=== PATIENT | female | born 1980 | race Caucasian/White ===

== ENCOUNTER 2022-03-18 23:05 | Emergency (ER) | payer OTHER, SELFPAY ==
--- NOTE | ~2022-03-18 | CT_ITS ---
EXAMINATION: CT abdomen pelvis wo con DATE: 03/19/2022 00:59 INDICATION: Right sided flank pain radiating to groin. History kidney stones. Nausea. TECHNIQUE: Computed tomography (CT) of the abdomen and pelvis was performed without intravenous contr ast. Automated exposure control and iterative reconstruction technique were employed. Exam dose: 163 .90 mGy-cm total exam DLP. COMPARISON: None. FINDINGS: There is mild discoid atelectasis or scarring at the lung bases. No basilar pulmonary conso lidation. Normal heart size. No pericardial or pleural effusion. The liver, gallbladder, bile ducts, spleen, pancreas and pancreatic duct as well as well as adrenal g lands are unremarkable. A couple of small nonobstructing right renal calculi measuring up to 2.5 mm and several left nonobstr ucting renal calculi measuring up to 3 x 5 mm approximately are noted. No ureteral calculus or hydrou reteronephrosis is evident. The urinary bladder is unremarkable. There is an IUD in expected position within the uterus. Normal caliber of the abdominal aorta. No intraperitoneal or retroperitoneal or pelvic mass lesion or adenopathy or ascites. Normal appendix. No bowel obstruction or intraperitoneal free air. Included skeletal structures are unremarkable. IMPRESSION: Mild bilateral nonobstructive nephrolithiasis Reviewed, dictated and finalized at [facility]. Reviewed, dictated and finalized at [facility]. 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
[2022-03-18 23:09] VITALS: BP 145/83; PULSE 73; RESP 16; TEMP 36.9; O2SAT 100
[2022-03-19] VITALS (13 sets, daily range): BP systolic 137; BP diastolic 83; PULSE 59–72; RESP 17–43; O2SAT 95–100
--- NOTE | 2022-03-19 00:31 | ED.GENADULT ---
HPI - General Adult General Chief complaint: Urogenital-Female Stated complaint: flank pain Time Seen by Provider: 03/19/22 00:17 History of Present Illness HPI narrative: Is a 41-year-old female presenting ED with a chief complaint of flank pain. The pain is on the right side started 8:00 p.m. today. Is a sharp pain that radiates down into her groin. This was 10 out 10 in intensity but is improved. Patient says it felt like this when she had a kidney stone long time ago. There are no exacerbating relieving symptoms. Patient does have some nausea but no vomiting. She denies hematuria, dysuria urgency or frequency. Patient has fever chills. Related Data Allergies Allergy/AdvReac Type Severity Reaction Status Date / Time codeine Allergy Mild HALLUCINATI Verified 03/19/22 00:29 ON hydrocodone AdvReac Vomiting Verified 03/19/22 00:29 Review of Systems Review of Systems: CONSTITUTIONAL: Denies night sweats. EYES: No eye pain ENT: Denies rhinorrhea CARDIOVASCULAR: Denies palpitations RESPIRATORY: Denies hemoptysis GASTROINTESTINAL: Denies hematemesis GENITOURINARY: Denies hematuria. SKIN: Denies rash MUSCULOSKELETAL: Denies myalgia. NEUROLOGIC: Denies weakness. PSYCHIATRIC: Denies delusions [facility] Social History Social History (Updated 03/19/22 @ 00:33 by Garry Myrick MD) Social History: Patient drinks alcohol occasionally, smokes pack cigarettes over today, denies illicit drug Exam Narrative: APPEARANCE: No apparent distress. Head: atraumatic. EYES: EOMI, NOSE: Atraumatic NECK: Trachea midline RESPIRATORY: No increased rate of breathing CARDIOVASCULAR: RRR, ABDOMINAL: abdomen is soft, nontender no guarding , no CVA tenderness MUSCULOSKELETAl: No obvious deformities NEURO: Alert. Moving 4/4 extremities SKIN:: Warm, dry. Normal color PSYCHIATRIC: Normal affect Course Vital Signs Vital signs: Vital Signs Temperature 98.4 F 03/18/22 23:09 Pulse Rate 73 03/18/22 23:09 Respiratory Rate 16 03/18/22 23:09 Blood Pressure 145/83 H 03/18/22 23:09 Pulse Oximetry 100 03/18/22 23:09 Oxygen Delivery Room Air 03/18/22 23:09 Temperature 98.4 F 03/18/22 23:09 Pulse Rate 73 03/18/22 23:09 Respiratory Rate 16 03/18/22 23:09 Blood Pressure 145/83 H 03/18/22 23:09 Pulse Oximetry 100 03/18/22 23:09 Oxygen Delivery Room Air 03/18/22 23:09 Medical Decision Making MDM Narrative Medical decision making narrative: is a 41-year-old female presenting with right-sided flank pain. She has a history of kidney stones. CT and pelvis is ordered to evaluate. Lab work and urine also been obtained. Lab work was significant for mildly elevated white blood cell count of 11.5. Urine had some RBCs and some white blood cells but it was a dirty catch with many squamous cells. Patient does not have any urinary symptoms at this time. CT abdomen pelvis did not reveal any obstructing kidney stones. There were several nonobstructing renal nephrolithiasis. There is no hydroureter. At this time the patient's pain is well controlled. The patient has not had pain since she presented to the ED. It is likely that she had a stone and passed it. Patient will be discharged with instructions take Motrin Tylenol for pain control. She can return emergency department for condition is to worsen. Vital Signs Vital Signs: Vital Signs Temperature 98.4 F 03/18/22 23:09 Pulse Rate 73 03/18/22 23:09 Respiratory Rate 16 03/18/22 23:09 Blood Pressure 145/83 H 03/18/22 23:09 Pulse Oximetry 100 03/18/22 23:09 Oxygen Delivery Room Air 03/18/22 23:09 Temperature 98.4 F 03/18/22 23:09 Pulse Rate 73 03/18/22 23:09 Respiratory Rate 16 03/18/22 23:09 Blood Pressure 145/83 H 03/18/22 23:09 Pulse Oximetry 100 03/18/22 23:09 Oxygen Delivery Room Air 03/18/22 23:09 Lab Data Result diagrams: 03/19/22 00:27 03/19/22 00:27
[2022-03-19 00:33] LABS: Basophils Absolute Auto 0.1 K/mm3 (0.0-0.1); Eosinophils Absolute Auto 0.3 K/mm3 (0-0.3); Eosinophils Percent Auto 2.4 % (0-4.4); Hematocrit 42.5 % (37.0-47.0); Hemoglobin 14.6 g/dL (12.0-15.0); Immature Granulocyte Absolute 0.05 K/mm3 (0.00-0.031); Immature Granulocyte Percent A 0.4 % (0-0.5); Lymphocytes Absolute Auto 2.17 K/mm3 (0.9-3.2); Lymphocytes Percent Auto 18.9 % (18.3-44.2); Mean Corpuscular HGB Conc 34.4 g/dl (32-36); Mean Corpuscular Hemoglobin 31.6 pg (26-34); Mean Platelet Volume 9.9 fl (7.4-10.4); Monocytes Absolute Auto 0.7 K/mm3 (0.1-0.6); Monocytes Percent Auto 6.2 % (2.6-8.5); Neutrophils Absolute Auto 8.2 K/mm3 (1.3-6.7); Neutrophils Percent Auto 71.1 % (45.5-73.1); Platelet Count Result 224 k/mm3 (150-375); Red Blood Count 4.62 M/mm3 (4.2-5.4); Red Cell Distribution Width 12.1 % (11.5-14.5); White Blood Count 11.5 K/mm3 (4.5-10.0)
[2022-03-19 00:34] LABS: Appearance Urine Clear (Clear); Bilirubin Urine Negative (Negative); Blood Urine Negative (Negative); Color Urine Yellow (Yellow); Glucose Urine UA Negative (Negative); Ketones Urine Negative (Negative); Leukocyte Esterase Ur 1+ LEU/UL (Negative); Nitrate Urine Negative (Negative); Protein Urine Negative (Negative); Specific Grav Ur 1.015 (1.001-1.035); Urobilinogen Urine 0.2 mg/dL (<2.0)
[2022-03-19 00:44] LABS: Alanine Aminotransferase 22 U/L (6-35); Albumin Level 4.4 g/dL (3.5-5.1); Alkaline Phosphatase 72 U/L (38-126); Anion Gap 10 mmol/L (8-16); Aspartate Amino Transferase 23 U/L (14-36); Bilirubin,Total 0.6 mg/dL (0.2-1.3); Blood Urea Nitrogen 7 mg/dL (7-17); Calcium 9.5 mg/dL (8.4-10.2); Carbon Dioxide 22 mmol/L (22-30); Chloride 107 mmol/L (98-107); Estimated CRCL calculation 75 ml/min; Estimated Glomerular Filt Rate > 60; Glucose 89 mg/dL (65-110); Potassium 3.7 mmol/L (3.4-5.0); Sodium 139 mmol/L (137-145)
[2022-03-19 00:48] LABS: Bacteria Urine Trace /hpf; Mucus Urine Rare /lpf; Squamous Epithelial Cell Urine Many /hpf (Few)
[2022-03-19 00:49] LABS: Add Urine Microscopic? YES
[2022-03-19 00:53] LABS: Magnesium 2.1 mg/dL (1.6-2.3)
[2022-03-19] MEDS: ONDANSETRON INJ 4 MG/2 ML VIAL IV PUSH (00:59)
[2022-03-19] MEDS: IBUPROFEN 400 MG TABLET 800 MG PO (00:59)
[2022-03-19] MEDS: ACETAMINOPHEN 500 MG TABLET 1000 MG PO (01:00)
[2022-03-19] MEDS: SODIUM CHLORIDE 0.9% IV 1,000 ML 999 ML IV CONT (01:00)
--- NOTE | 2022-03-19 01:05 | PC.NURSE ---
Pt here during seasonal time change. Times may be repeated.
== END 2022-03-19 03:13 | disposition home or self-care (01) ==
PROVIDERS: Emergency Provider Emergency Medicine; PCP Nurse Practitioner Family
DX: R10.9 Unspecified abdominal pain (principal)
CPT/HCPCS: 36415; 74176; 80053; 81001; 81025; 83735; 85025; 96361; 96374; 99284; A9270; J2405; J7030

== ENCOUNTER 2024-06-02 11:02 | Outpatient (CLI) | payer OTHER, SELFPAY ==
--- NOTE | ~2024-06-02 | XR_ITS ---
EXAMINATION: XR chest 2V 06/02/2024 11:22 INDICATION: Nicotine dependence. PROCEDURE: 2 view chest COMPARISON: No prior studies for comparison. FINDINGS: The lungs are clear. The cardiomediastinal silhouette is within normal limits. There are no pleural effusions. There is no pneumothorax suspected. IMPRESSION: 1: NO ACUTE CARDIOPULMONARY DISEASE. Reviewed, dictated and finalized at location [facility]. 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
--- OUTSIDE RECORDS SUMMARY | 2024-06-05 12:59 | XMS_ITS | Data Portability ---
Author Organization [facility], Main Office Address [address] [place] [address] Care Team Providers Care Motel Keeper Name Role Phone BENNIE JANE Primary Care Provider Assessment Encounter Date Assessment Date Assessment LastModified by Organization Details LastModified Time 08/09/2022 08/09/2022 41 yo F with - WELL ADULT VISIT - ? IBS - VIT D DEFICIENCY - SMOKER - H/O ANXIETY D/w pt in detail about her findings and further plan of care. Will do routine labs, cxr. Pt declined HCG. Meds as directed. Diet and exercise explained in detail. Currently smoking about 0.5 ppd. Encouraged pt to cut down and quit it. HM: WWE - 10/02, normal as per pt. Cont f/u with Gyne at [facility] as per schedule. Mammo - Never. Ordered. Flu - Pt declined. Tdap - 08/31/16. F/u in 2 weeks. Annual labs in 08/04. [email or web address] Not available 08/09/2022 11:36:07 08/29/2022 08/29/2022 41 yo F with - HTG, mild - ? IBS - VIT D DEFICIENCY - SMOKER - H/O ANXIETY - FH OF COLON CANCER Annual labs: 08/16/22. D/w pt in detail about her findings, recent labs and further plan of care. Will refer pt to GI. Meds as directed. Diet and exercise explained in detail. Currently smoking about 0.5 ppd. Encouraged pt to cut down and quit it. HM: WWE - 10/02, normal as per pt. Cont f/u with Gyne at [facility] as per schedule. Mammo - Never. Ordered. Flu - Pt declined. Tdap - 08/31/16. F/u in 3 months. Lipids in 12/03. Annual labs in 08/04. [email or web address] Not available 08/29/2022 15:06:59 06/02/2024 06/02/2024 43 yo F with - WELL ADULT VISIT - HTG, mild - ? IBS - VIT D DEFICIENCY - B/L KIDNEY STONES - SMOKER - H/O ANXIETY - FH OF COLON CANCER Annual labs: 08/16/22. CT A&P wo: 03/19/22. D/w pt in detail about her findings, recent labs & imagines and further plan of care. Will do routine labs, cxr. Pt declined for HCG. Will refer pt to GI again. Meds as directed. Diet and exercise explained in detail. Currently smoking about 0.5 ppd. Encouraged pt to cut down and quit it. F/u with GI as per schedule. F/u with Ophtho as per schedule. Cont f/u with Gyne as per schedule. HM: WWE - 10/03, normal as per pt. Cont f/u with Gyne at [facility] as per schedule. Mammo - Never. Ordered again. Flu - Pt declined. Tdap - 08/31/16. F/u in 2-3 weeks. Annual labs in 06/08. [email or web address] Not available 06/02/2024 11:05:45 Plan of Treatment Reminders Order Date Submit Date Provider Last Modified By Organization Details Last Modified Time Details Appointments Follow Up 15 2024 10:45A Deena Jane MD Not available Not available Not available Lab vitamin D, 25-hydrox y, total, serum [email or web address] [place] [address] (Lab), [address] [place], [address], 09/06/2022 09:02:20 glycohemo globin, total, blood 2022 023 [facility] (Lab), [address] [place], [address], 08/16/2022 21:38:14 CBC w/ auto diff 2022 023 [facility] (Lab), [address] [place], [address], 08/16/2022 19:49:38 CMP, serum or plasma 2022 023 [facility] (Lab), [address] [place], [address], 08/16/2022 21:09:40 lipid panel, serum 2022 023 [facility] (Lab), [address] [place], [address], 08/16/2022 21:09:45 TSH, serum, reflex free T4 [address] (Lab), [address] [place], [address], 09/06/2022 09:01:56 urinalysi s complete, reflex culture [address] (Lab), [address] [place], [address], 09/06/2022 09:02:07 lipid panel, serum [email or web address] (Lab), [address] [place], [address], 11/29/2022 08:18:16 vitamin D, 25-hydrox y, total, serum 2024 025 [facility], [address], [place], [address], 06/03/2024 11:10:53 HbA1c (hemoglob in A1c), blood 2024 025 ROSALIA [facility], [address], [place], [address], 06/03/2024 11:10:54 CBC w/ auto diff 2024 025 [facility], [address], [place], [address], 06/03/2024 11:10:49 CMP, serum or plasma 2024 025 [facility], [address], [place], [address], 06/03/2024 11:10:48 lipid panel, serum 2024 025 [facility], [address], [place], [address], 06/03/2024 11:10:47 TSH, serum, reflex free T4 2024 025 [facility], [address], [place], [address], 06/02/2024 10:57:16 urinalysi s complete, reflex culture 2024 025 [facility], [address], [place], [address], 06/03/2024 11:10:50 Referral gastroent erologist referral - Please call the pt to make an appointme nt. 2022 023 [email or web address] Noble Ortiz MD, [address] [facility], [address], [place], [address], 09/28/2022 17:38:15 gastroent erologist referral - Please call patient to schedule an appointme nt. Thank you. 2024 025 KATELYN Dexter MD, [address] [facility], [address], [address], 06/02/2024 11:45:25 Procedures None recorded. Surgeries None recorded. Imaging MAMMO, screening , bilateral 2022 023 [email or web address] Not available 09/06/2022 12:40:45 XR, chest, 2 view 2022 023 [email or web address] Not available 09/06/2022 12:40:45 MAMMO, screening , bilateral - Please call pt to schedule 2024 025 ATHENAFAX [facility], [address], [place], [address], 06/02/2024 12:05:26 XR, chest, 2 view 2024 025 [email or web address] [facility], [address], [place], [address], 06/02/2024 14:44:20 Medication Orders nicotine 14 mg/24 hr daily transderm al patch 2022 023 [email or web address] [facility]/Pharmacy #[id number], [address] [place], [address], 06/02/2024 10:48:07 ergocalci ferol (vitamin D2) 1,250 mcg (50,000 unit) capsule 2022 023 [facility]/Pharmacy #[id number], [address] [place], [address], 08/29/2022 14:48:26 Patient TargetsNo targets recorded. Patient InstructionsNo instructions recorded. Reason for Referral Lens Coater Referral for Family history of cancer of colon Please call the pt to make an appointment. Referring Physician: [facility], Encounter Date: 08/29/2022 Lens Coater Referral for Family history of cancer of colon Please call patient to schedule an appointment. Thank you. Referring Physician: [facility], Encounter Date: 06/02/2024 Results Created Date Observation Date Name Description Value Unit Range Abnormal Flag Note LastModifiedBy Organization Detail LastModifiedTime 08/17/19 23 08/16/2022 CBC/C OMPLE TE BLD COUNT W/DIF F white blood cells 10.5 x10'3 /uL 4.2-10 .8 Not Available [facility] (Lab) [address] [place], [address], 08/16/2022 19:49:38 08/17/19 23 08/16/2022 CBC/C OMPLE TE BLD COUNT W/DIF F red blood cells 4.92 x10'6 /uL 3.80-5 .20 Not Available [facility] (Lab) [address] [place], [address], 08/16/2022 19:49:38 08/17/19 23 08/16/2022 CBC/C OMPLE TE BLD COUNT W/DIF F hemoglobin 15.1 g/dL 12.0-1 5.6 Not Available [facility] (Lab) [address] [place], [address], 08/16/2022 19:49:38 08/17/19 23 08/16/2022 CBC/C OMPLE TE BLD COUNT W/DIF F hematocrit 45.8 % 35.7-4 5.7 high Not Available [facility] (Lab) [address] [place], [address], 08/16/2022 19:49:38 08/17/19 23 08/16/2022 CBC/C OMPLE TE BLD COUNT W/DIF F mean red cell volume 93.1 fL 82.0-9 9.0 Not Available [facility] (Lab) [address] [place], [address], 08/16/2022 19:49:38 08/17/19 23 08/16/2022 CBC/C OMPLE TE BLD COUNT W/DIF F mean red cell hemoglobin 30.7 pg 27.0-3 3.0 Not Available [facility] (Lab) [address] [place], [address], 08/16/2022 19:49:38 04/05/08/16/2022 CBC/C OMPLE TE BLD COUNT W/DIF F mean RBC HGB concentratio n 33.0 g/dL 31.0-3 6.0 Not Available [facility] (Lab) [address] [place], [address], 08/16/2022 19:49:38 08/17/19 23 08/16/2022 CBC/C OMPLE TE BLD COUNT W/DIF F red cell distribution width 12.7 % 11.8-1 5.5 Not Available [facility] (Lab) [address] [place], [address], 08/16/2022 19:49:38 08/17/19 23 08/16/2022 CBC/C OMPLE TE BLD COUNT W/DIF F platelets 238 x10'3 /uL 150-40 0 Not Available [facility] (Lab) [address] [place], [address], 08/16/2022 19:49:38 08/17/19 23 08/16/2022 CBC/C OMPLE TE BLD COUNT W/DIF F mean platelet volume 10.8 fL 9.0-12 .4 Not Available [facility] (Lab) [address] [place], [address], 08/16/2022 19:49:38 08/17/19 23 08/16/2022 CBC/C OMPLE TE BLD COUNT W/DIF F neutrophils 74.7 % 39.0-7 2.0 high Not Available [facility] (Lab) [address] [place], [address], 08/16/2022 19:49:38 08/17/19 23 08/16/2022 CBC/C OMPLE TE BLD COUNT W/DIF F lymphocytes 15.4 % 16.0-4 7.0 low Not Available [facility] (Lab) [address] [place], [address], 08/16/2022 19:49:38 08/17/1908/16/2022 CBC/C OMPLE TE BLD COUNT W/DIF F monocytes 6.8 % 5.0-12 .0 Not Available [facility] (Lab) [address] [place], [address], 08/16/2022 19:49:38 08/17/19 23 08/16/2022 CBC/C OMPLE TE BLD COUNT W/DIF F eosinophils 1.8 % 1.0-7. 0 Not Available [facility] (Lab) [address] [place], [address], 08/16/2022 19:49:38 08/17/1908/16/2022 CBC/C OMPLE TE BLD COUNT W/DIF F basophils 1.0 % 0.0-2. 0 Not Available [facility] (Lab) [address] [place], [address], 08/16/2022 19:49:38 08/17/1908/16/2022 CBC/C OMPLE TE BLD COUNT W/DIF F immature granulocytes 0.3 % 0.00-0 .50 Not Available [facility] (Lab) [address] [place], [address], 08/16/2022 19:49:38 08/17/19 23 08/16/2022 CBC/C OMPLE TE BLD COUNT W/DIF F neutrophils, absolute count 7.87 x10'3 /uL 1.5-8. 0 Not Available [facility] (Lab) [address] [place], [address], 08/16/2022 19:49:38 08/17/1908/16/2022 CBC/C OMPLE TE BLD COUNT W/DIF F lymphocytes, absolute count 1.62 x10'3 /uL 1.07-3 .43 Not Available [facility] (Lab) [address] [place], [address], 08/16/2022 19:49:38 08/17/19 23 08/16/2022 CBC/C OMPLE TE BLD COUNT W/DIF F monocytes, absolute count 0.72 x10'3 /uL 0.29-0 .99 Not Available [facility] (Lab) [address] [place], [address], 08/16/2022 19:49:38 08/17/19 23 08/16/2022 CBC/C OMPLE TE BLD COUNT W/DIF F eosinophils, absolute count 0.19 x10'3 /uL 0.02-0 .53 Not Available [facility] (Lab) [address] [place], [address], 08/16/2022 19:49:38 08/17/19 23 08/16/2022 CBC/C OMPLE TE BLD COUNT W/DIF F basophils, absolute count 0.11 x10'3 /uL 0.01-0 .08 high Not Available [facility] (Lab) [address] [place], [address], 08/16/2022 19:49:38 08/17/19 23 08/16/2022 CBC/C OMPLE TE BLD COUNT W/DIF F immature granulocytes ,absolute 0.03 x10'3 /uL 0.00-0 .05 Not Available [facility] (Lab) [address] [place], [address], 08/16/2022 19:49:38 08/17/19 23 08/16/2022 CBC/C OMPLE TE BLD COUNT W/DIF F nucleated red blood cells 0.0 % -0 Not Available [facility] (Lab) [address] [place], [address], 08/16/2022 19:49:38 08/17/19 23 08/16/2022 CBC/C OMPLE TE BLD COUNT W/DIF F NRBC# 0.00 x10'3 /uL Not Available [facility] (Lab) [address] [facility] [place], [address], 08/16/2022 19:49:38 08/17/1908/16/2022 URINA LYSIS COMPL ETE/I RIS W/RFX color LIGHT- YELLOW Not Available [facility] (Lab) [address] [place], [address], 08/16/2022 21:03:46 08/17/19 23 08/16/2022 URINA LYSIS COMPL ETE/I RIS W/RFX appear EXTRA TURBID abnormal Not Available [facility] (Lab) [address] [facility] [place], [address], 08/16/2022 21:03:46 08/17/19 23 08/16/2022 URINA LYSIS COMPL ETE/I RIS W/RFX specific gravity 1.012 1.001- 1.030 Not Available [facility] (Lab) [address] [place], [address], 08/16/2022 21:03:46 08/17/19 23 08/16/2022 URINA LYSIS COMPL ETE/I RIS W/RFX pH 5.0 pH_un its 5.0-9. 0 Not Available [facility] (Lab) [address] [place], [address], 08/16/2022 21:03:46 08/17/19 23 08/16/2022 URINA LYSIS COMPL ETE/I RIS W/RFX leukocytes NEGATI VE gavin/u L negati ve- Not Available [facility] (Lab) [address] [place], [address], 08/16/2022 21:03:46 08/17/19 23 08/16/2022 URINA LYSIS COMPL ETE/I RIS W/RFX nitrite NEGATI VE negati ve- Not Available [facility] (Lab) [address] [place], [address], 08/16/2022 21:03:46 08/17/19 23 08/16/2022 URINA LYSIS COMPL ETE/I RIS W/RFX protein NEGATI VE mg/dL negati ve- Not Available [facility] (Lab) [address] [place], [address], 08/16/2022 21:03:46 08/17/19 23 08/16/2022 URINA LYSIS COMPL ETE/I RIS W/RFX glucose NORMAL mg/dL normal - Not Available [facility] (Lab) [address] [place], [address], 08/16/2022 21:03:46 08/17/19 23 08/16/2022 URINA LYSIS COMPL ETE/I RIS W/RFX ketones NEGATI VE mg/dL negati ve- Not Available [facility] (Lab) [address] [place], [address], 08/16/2022 21:03:46 08/17/19 23 08/16/2022 URINA LYSIS COMPL ETE/I RIS W/RFX urobilinogen NORMAL mg/dL normal - Not Available [facility] (Lab) [address] [place], [address], 08/16/2022 21:03:46 08/17/19 23 08/16/2022 URINA LYSIS COMPL ETE/I RIS W/RFX bilirubin NEGATI VE mg/dL negati ve- Not Available [facility] (Lab) [address] [place], [address], 08/16/2022 21:03:46 08/17/19 23 08/16/2022 URINA LYSIS COMPL ETE/I RIS W/RFX blood NEGATI VE mg/dL negati ve- Not Available [facility] (Lab) [address] [place], [address], 08/16/2022 21:03:46 08/17/19 23 08/16/2022 URINA LYSIS COMPL ETE/I RIS W/RFX white blood cells 0-8 /i??h pfi?? 0-8 Not Available [facility] (Lab) [address] [place], [address], 08/16/2022 21:03:46 08/17/19 23 08/16/2022 URINA LYSIS COMPL ETE/I RIS W/RFX red blood cells NONE /i??h pfi?? 0-4 Not Available [facility] (Lab) [address] [place], [address], 08/16/2022 21:03:46 08/17/19 23 08/16/2022 URINA LYSIS COMPL ETE/I RIS W/RFX bacteria OCCASI ONAL abnormal Not Available [facility] (Lab) [address] [place], [address], 08/16/2022 21:03:46 08/17/19 23 08/16/2022 URINA LYSIS COMPL ETE/I RIS W/RFX mucous OCCASI ONAL /i??l pfi?? abnormal Not Available [facility] (Lab) [address] [place], [address], 08/16/2022 21:03:46 08/17/19 23 08/16/2022 URINA LYSIS COMPL ETE/I RIS W/RFX squamous epithelial PACKED FIELD /i??l pfi?? abnormal Not Available [facility] (Lab) [address] [place], [address], 08/16/2022 21:03:46 08/17/19 23 08/16/2022 URINA LYSIS COMPL ETE/I RIS W/RFX amorphous crystal OCCASI ONAL /i??h pfi?? abnormal Not Available [facility] (Lab) [address] [place], [address], 08/16/2022 21:03:46 08/17/19 23 08/16/2022 COMPR EHENS TONE METAB OLIC PANEL sodium 136 mmol/ L 137-14 5 low Not Available [facility] (Lab) [address] [place], [address], 08/16/2022 21:09:40 08/17/19 23 08/16/2022 COMPR EHENS TONE METAB OLIC PANEL potassium 4.5 mmol/ L 3.5-5. 1 Not Available [facility] (Lab) [address] [place], [address], 08/16/2022 21:09:40 08/17/19 23 08/16/2022 COMPR EHENS TONE METAB OLIC PANEL chloride 107 mmol/ L 98-107 Not Available [facility] (Lab) [address] [place], [address], 08/16/2022 21:09:40 08/17/19 23 08/16/2022 COMPR EHENS TONE METAB OLIC PANEL carbon dioxide 22 mmol/ L 22-30 Not Available [facility] (Lab) [address] [place], [address], 08/16/2022 21:09:40 08/17/19 23 08/16/2022 COMPR EHENS TONE METAB OLIC PANEL anion gap 11.5 mmol/ L 14-22 low Not Available [facility] (Lab) [address] [place], [address], 08/16/2022 21:09:40 08/17/19 23 08/16/2022 COMPR EHENS TONE METAB OLIC PANEL glucose 86 mg/dL 70-99 Not Available [facility] (Lab) [address] [place], [address], 08/16/2022 21:09:40 08/17/19 23 08/16/2022 COMPR EHENS TONE METAB OLIC PANEL BUN 15 mg/dL 8-19 Not Available [facility] (Lab) [address] [place], [address], 08/16/2022 21:09:40 08/17/1908/16/2022 COMPR EHENS TONE METAB OLIC PANEL creatinine 0.79 mg/dL 0.66-1 .25 Not Available [facility] (Lab) [address] [place], [address], 08/16/2022 21:09:40 08/17/19 23 08/16/2022 COMPR EHENS TONE METAB OLIC PANEL GFR >60 Refer ence Range : [place] ge GFR Healt hy Adult : >60 mL/mi n/1.7 3 m2 Chron ic Kidne y Disea se: 15-60 mL/mi n/1.7 3 m2 Kidne y Failu re: <15/m L/min /1.73 m2 www.n iddk. nih.g ov The MDRD study equat ion has not been valid ated in child anish <18 years of age; pregn ant women ; the elder ly >85 years of age; or in some racia l or ethni c subgr oups, such as [facility]. Outsi de the valid ated alida eters , estim ated GFR is less accur ate, requi ring clini latanya judgm ent on a case- by-ca se basis . Clini latanya inter preta tion for other races and ages must be made by the clini michelle. The MDRD study equat ion has not been valid ated for the evalu ation of serum creat inine relat ed to nutri shweta l statu s or medic ation usage . For perso ns <18 years of age, a pedia tric GFR calcu lator is avail able on the F websi te: https ://zaida moore.roberta florentino.o aditya/pr josephineess ional s/kdo qi/gf r_cal culat or Not Available [facility] (Lab) [address] [place], [address], 08/16/2022 21:09:40 08/17/19 23 08/16/2022 COMPR EHENS TONE METAB OLIC PANEL alkaline phosphatase 73 U/L 38-126 Not Available [facility] (Lab) [address] [place], [address], 08/16/2022 21:09:40 08/17/1908/16/2022 COMPR EHENS TONE METAB OLIC PANEL alanine aminotransfe rase 25 U/L 0-35 Not Available [facility] (Lab) [address] [place], [address], 08/16/2022 21:09:40 08/17/19 23 08/16/2022 COMPR EHENS TONE METAB OLIC PANEL aspartate aminotransfe rase 26 U/L 15-37 Not Available [facility] (Lab) [address] [place], [address], 08/16/2022 21:09:40 08/17/19 23 08/16/2022 COMPR EHENS TONE METAB OLIC PANEL bilirubin, total 0.80 mg/dL 0.20-1 .30 Not Available [facility] (Lab) [address] [place], [address], 08/16/2022 21:09:40 08/17/19 23 08/16/2022 COMPR EHENS TONE METAB OLIC PANEL calcium 9.0 mg/dL 8.4-10 .2 Not Available [facility] (Lab) [address] [place], [address], 08/16/2022 21:09:40 08/17/19 23 08/16/2022 COMPR EHENS TONE METAB OLIC PANEL total protein 7.5 g/dL 6.3-8. 2 Not Available [facility] (Lab) [address] [place], [address], 08/16/2022 21:09:40 08/17/19 23 08/16/2022 COMPR EHENS TONE METAB OLIC PANEL albumin 4.5 g/dL 3.4-5. 0 Not Available [facility] (Lab) [address] [place], [address], 08/16/2022 21:09:40 08/17/1908/16/2022 COMPR EHENS TONE METAB OLIC PANEL globulin 3.0 g/dL 2.6-4. 2 Not Available [facility] (Lab) [address] [place], [address], 08/16/2022 21:09:40 08/17/19 23 08/16/2022 COMPR EHENS TONE METAB OLIC PANEL A/G ratio 1.5 ratio 1.0-2. 0 Not Available [facility] (Lab) [address] [place], [address], 08/16/2022 21:09:40 08/17/19 23 08/16/2022 LIPID PANEL cholesterol 176 mg/dL 140-19 9 NIH GENESIS NSUS RECOM MENDA TION FOR EFRAÍN STERO L: ADULT CHILD LOW RISK: <200 <170 BORDE RLINE : <200- 239 ----- HIGH RISK: >240 >200 Not Available [facility] (Lab) [address] [place], [address], 08/16/2022 21:09:45 08/17/1908/16/2022 LIPID PANEL triglyceride s 157 mg/dL 0-150 high NIH GENESIS NSUS REPOR T RECOM MENDA TION FOR TRIGL YCERI ISABELLA: ADULT CHILD LOW RISK: <150 ----- BODER LINE: 150-1 99 ----- HIGH RISK: >200 ----- Not Available [facility] (Lab) [address] [place], [address], 08/16/2022 21:09:45 08/17/1908/16/2022 LIPID PANEL HDL cholesterol 54 mg/dL 40- Not Available [facility] (Lab) [address] [place], [address], 08/16/2022 21:09:45 08/17/19 23 08/16/2022 LIPID PANEL LDL cholesterol, calculated 91 mg/dL 0-130 NIH GENESIS NSUS REPOR T RECOM MENDA TIONS FOR LDL: ADULT CHILD LOW RISK <130 <110 (OPTI MAL LDL) <100 ----- BORDE RLINE : 130-1 59 ----- HIGH RISK: >160 >130 A TRIGL YCERI DE RESUL T >400 INVAL IDATE S THE CALCU LATIO N FOR LDL FRACT IONAT ION - THE LDL RESUL T WILL NOT BE REPOR SIL. Not Available [facility] (Lab) [address] [place], [address], 08/16/2022 21:09:45 08/17/1908/16/2022 VITAM IN D 25-HY DROXY [id number] 24.0 NG/mL 30-100 low Vitam in D Statu s: Defic ient: <20 ng/mL Insuf ficie nt: 20-29 ng/mL Suffi cient : 30-10 0 ng/mL Not Available [facility] (Lab) [address] [place], [address], 08/16/2022 21:17:59 08/17/1908/16/2022 HEMOG LOBIN A1C HA1C 4.7 % 4.0-6. 0 Diabe bekah Scree moy Crite ana: <5.7% Consi stent with absen ce of diabe bekah 5.7-6 .4% Consi stent with incre ased risk for diabe bekah (pred iabet es) >OR=6 .5% Consi stent with diabe bekah REFER ENCE: Diabe bekah Care 2016, 39(Anthony ppl.1 ):s13 -s22 Not Available [facility] (Lab) [address] [place], [address], 08/16/2022 21:38:14 08/17/19 23 08/16/2022 TSH W/REF CARLOS FT4 TSH with reflex free T4 0.866 uIU/m L 0.465- 4.680 Not Available [facility] (Lab) [address] [place], [address], 08/16/2022 21:39:21 06/02/19 25 06/03/2024 LIPID PANEL , STAND ROSA cholesterol, total 135 mg/dL <200 normal Not Available [facility] [address] [address] [place], [address], 06/03/2024 11:10:47 06/02/19 25 06/03/2024 LIPID PANEL , ST[place]A HDL cholesterol 57 mg/dL > or = 50 normal Not Available [facility] [address] [place], [address], 06/03/2024 11:10:47 06/02/19 25 06/03/2024 LIPID PANEL , STAND ROSA triglyceride s 129 mg/dL <150 normal Not Available [facility] [address] [address] [place], [address], 06/03/2024 11:10:47 06/02/19 25 06/03/2024 LIPID PANEL , [place] LDL-choleste rol 57 mg/dL _(latanya c) normal Refer ence range : <100 Sylvie able range <100 mg/dL for prima ry preve ntion ; <70 mg/dL for patie nts with CHD or diabe tic patie nts with > or = 2 CHD risk facto rs. LDL-C is now calcu lated using the Gina n-Hop kins raniu jeanne n, which is a valid ated novel tikao cameron oliveira r accur acy than the Fried amarilis equat ion in the estim ation of LDL-C . Gina queen SS et al. JF. 2013; 310(1 9): 2061- 2068 (http ://ed ucati on.Qu Chloe grecos. com/f aq/FA Q164) Not Available [facility] [address] [place], [address], 06/03/2024 11:10:47 06/02/19 25 06/03/2024 LIPID PANEL , [place] chol/HDLC ratio 2.4 (calc ) <5.0 normal Not Available [address], [address], 06/03/2024 11:10:47 06/02/19 25 06/03/2024 LIPID PANEL , [place] non HDL cholesterol 78 mg/dL _(latanya c) <130 normal For patie nts with diabe bekah plus 1 major ASCVD risk facto r, treat ing to a non-H DL-C goal of <100 mg/dL (LDL- C of <70 mg/dL ) is consi dered a thera peuti c optio n. Not Available [address], [address], 06/03/2024 11:10:47 06/02/19 25 06/03/2024 COMPR EHENS TONE METAB OLIC PANEL glucose 78 mg/dL 65-99 normal Fasti ng refer ence inter fabi Not Available [address] [address] [place], [address], 06/03/2024 11:10:48 06/02/19 25 06/03/2024 COMPR EHENS TONE METAB OLIC PANEL urea nitrogen (BUN) 8 mg/dL 7-25 normal Not Available [address], [address], 06/03/2024 11:10:48 06/02/19 25 06/03/2024 COMPR EHENS TONE METAB OLIC PANEL creatinine 0.66 mg/dL 0.50-0 .99 normal Not Available [address], [address], 06/03/2024 11:10:48 06/02/19 25 06/03/2024 COMPR EHENS TONE METAB OLIC PANEL eGFR 111 mL/mi n/1.7 3m2 > or = 60 normal Not Available [facility] [address] [address] [place], [address], 06/03/2024 11:10:48 06/02/19 25 06/03/2024 COMPR EHENS TONE METAB OLIC PANEL BUN/creatini ne ratio SEE NOTE: (calc ) 6-22 Not Repor sil: BUN and Creat inine are withi n refer ence range . Not Available [address] [address] [place], [address], 06/03/2024 11:10:48 06/02/19 25 06/03/2024 COMPR EHENS TONE METAB OLIC PANEL sodium 140 mmol/ L 135-14 6 normal Not Available [address], [address], 06/03/2024 11:10:48 06/02/19 25 06/03/2024 COMPR EHENS TONE METAB OLIC PANEL potassium 4.0 mmol/ L 3.5-5. 3 normal Not Available [address], [address], 06/03/2024 11:10:48 06/02/19 25 06/03/2024 COMPR EHENS TONE METAB OLIC PANEL chloride 107 mmol/ L 98-110 normal Not Available [address], [address], 06/03/2024 11:10:48 06/02/19 25 06/03/2024 COMPR EHENS TONE METAB OLIC PANEL carbon dioxide 24 mmol/ L 20-32 normal Not Available [address], [address], 06/03/2024 11:10:48 06/02/19 25 06/03/2024 COMPR EHENS TONE METAB OLIC PANEL calcium 9.1 mg/dL 8.6-10 .2 normal Not Available [address], [address], 06/03/2024 11:10:48 06/02/19 25 06/03/2024 COMPR EHENS TONE METAB OLIC PANEL protein, total 6.7 g/dL 6.1-8. 1 normal Not Available [address], [address], 06/03/2024 11:10:48 06/02/19 25 06/03/2024 COMPR EHENS TONE METAB OLIC PANEL albumin 4.4 g/dL 3.6-5. 1 normal Not Available [address], [address], 06/03/2024 11:10:48 06/02/19 25 06/03/2024 COMPR EHENS TONE METAB OLIC PANEL globulin 2.3 g/dL_ (calc ) 1.9-3. 7 normal Not Available [address], [address], 06/03/2024 11:10:48 06/02/19 25 06/03/2024 COMPR EHENS TONE METAB OLIC PANEL albumin/glob ulin ratio 1.9 (calc ) 1.0-2. 5 normal Not Available [address], [address], 06/03/2024 11:10:48 06/02/19 25 06/03/2024 COMPR EHENS TONE METAB OLIC PANEL bilirubin, total 0.9 mg/dL 0.2-1. 2 normal Not Available [address], [address], 06/03/2024 11:10:48 06/02/19 25 06/03/2024 COMPR EHENS TONE METAB OLIC PANEL alkaline phosphatase 66 U/L 31-125 normal Not Available [facility] [employer] [address], [address], 06/03/2024 11:10:48 06/02/19 25 06/03/2024 COMPR EHENS TONE METAB OLIC PANEL AST 17 U/L 10-30 normal Not Available [address] [place], [address], 06/03/2024 11:10:48 06/02/19 25 06/03/2024 COMPR EHENS TONE METAB OLIC PANEL ALT 15 U/L 6-29 normal Not Available [address], [address], 06/03/2024 11:10:48 06/02/19 25 06/03/2024 CBC (INCL UDES DIFF/ PLT) white blood cell count 11.1 thous and/u L 3.8-10 .8 high Not Available [facility] [address], [address], 06/03/2024 11:10:49 06/02/19 25 06/03/2024 CBC (INCL UDES DIFF/ PLT) red blood cell count 4.72 apoorva on/uL 3.80-5 .10 normal Not Available [address], [address], 06/03/2024 11:10:49 06/02/19 25 06/03/2024 CBC (INCL UDES DIFF/ PLT) hemoglobin 14.7 g/dL 11.7-1 5.5 normal Not Available [address], [address], 06/03/2024 11:10:49 06/02/19 25 06/03/2024 CBC (INCL UDES DIFF/ PLT) hematocrit 43.9 % 35.0-4 5.0 normal Not Available [address], [address], 06/03/2024 11:10:49 06/02/19 25 06/03/2024 CBC (INCL UDES DIFF/ PLT) MCV 93.0 fL 80.0-1 00.0 normal Not Available [address], [address], 06/03/2024 11:10:49 06/02/19 25 06/03/2024 CBC (INCL UDES DIFF/ PLT) MCH 31.1 pg 27.0-3 3.0 normal Not Available [address], [address], 06/03/2024 11:10:49 06/02/19 25 06/03/2024 CBC (INCL UDES DIFF/ PLT) MCHC 33.5 g/dL 32.0-3 6.0 normal For adult s, a sligh t decre ase in the calcu lated MCHC value (in the range of 30 to 32 g/dL) is most likel y not clini nimco signi negrita t; akbar er, it shoul d be inter prete d with cauti on in [facility] n with other red cell alida eters and the patie nt's clini latanya condi tion. Not Available [address], [address], 06/03/2024 11:10:49 06/02/19 25 06/03/2024 CBC (INCL UDES DIFF/ PLT) RDW 12.4 % 11.0-1 5.0 normal Not Available [address], [address], 06/03/2024 11:10:49 06/02/19 25 06/03/2024 CBC (INCL UDES DIFF/ PLT) platelet count 268 thous and/u L 140-40 0 normal Not Available [address], [address], 06/03/2024 11:10:49 06/02/19 25 06/03/2024 CBC (INCL UDES DIFF/ PLT) MPV 10.5 fL 7.5-12 .5 normal Not Available [address], [address], 06/03/2024 11:10:49 06/02/19 25 06/03/2024 CBC (INCL UDES DIFF/ PLT) absolute neutrophils 8525 cells /uL 1500-7 800 high Not Available [address], [address], 06/03/2024 11:10:49 06/02/19 25 06/03/2024 CBC (INCL UDES DIFF/ PLT) absolute lymphocytes 1654 cells /uL 850-39 00 normal Not Available [address], [address], 06/03/2024 11:10:49 06/02/19 25 06/03/2024 CBC (INCL UDES DIFF/ PLT) absolute monocytes 655 cells /uL 200-95 0 normal Not Available [address], [address], 06/03/2024 11:10:49 06/02/19 25 06/03/2024 CBC (INCL UDES DIFF/ PLT) absolute eosinophils 178 cells /uL 15-500 normal Not Available [address], [address], 06/03/2024 11:10:49 06/02/19 25 06/03/2024 CBC (INCL UDES DIFF/ PLT) absolute basophils 89 cells /uL 0-200 normal Not Available [address], [address], 06/03/2024 11:10:49 06/02/19 25 06/03/2024 CBC (INCL UDES DIFF/ PLT) neutrophils 76.8 % normal Not Available [address], [address], 06/03/2024 11:10:49 06/02/19 25 06/03/2024 CBC (INCL UDES DIFF/ PLT) lymphocytes 14.9 % normal Not Available [address], [address], 06/03/2024 11:10:49 06/02/19 25 06/03/2024 CBC (INCL UDES DIFF/ PLT) monocytes 5.9 % normal Not Available [address], [address], 06/03/2024 11:10:49 06/02/19 25 06/03/2024 CBC (INCL UDES DIFF/ PLT) eosinophils 1.6 % normal Not Available [address], [address], 06/03/2024 11:10:49 06/02/19 25 06/03/2024 CBC (INCL UDES DIFF/ PLT) basophils 0.8 % normal Not Available [address], [address], 06/03/2024 11:10:49 06/02/19 25 06/03/2024 URINA LYSIS , COMPL ETE W/REF CARLOS TO CULTU RE color YELLOW yellow normal Not Available [address], [address], 06/03/2024 11:10:50 06/02/19 25 06/03/2024 URINA LYSIS , COMPL ETE W/REF CARLOS TO CULTU RE appearance CLEAR clear normal Not Available [address], [address], 06/03/2024 11:10:50 06/02/19 25 06/03/2024 URINA LYSIS , COMPL ETE W/REF CARLOS TO CULTU RE specific gravity 1.007 1.001- 1.035 normal Not Available [address], [address], 06/03/2024 11:10:50 06/02/19 25 06/03/2024 URINA LYSIS , COMPL ETE W/REF CARLOS TO CULTU RE pH 6.0 5.0-8. 0 normal Not Available [address], [address], 06/03/2024 11:10:50 06/02/19 25 06/03/2024 URINA LYSIS , COMPL ETE W/REF CARLOS TO CULTU RE glucose NEGATI VE negati ve normal Not Available [address], [address], 06/03/2024 11:10:50 06/02/19 25 06/03/2024 URINA LYSIS , COMPL ETE W/REF CARLOS TO CULTU RE bilirubin NEGATI VE negati ve normal Not Available [address], [address], 06/03/2024 11:10:50 06/02/19 25 06/03/2024 URINA LYSIS , COMPL ETE W/REF CARLOS TO CULTU RE ketones NEGATI VE negati ve normal Not Available [address], [address], 06/03/2024 11:10:50 06/02/19 25 06/03/2024 URINA LYSIS , COMPL ETE W/REF CARLOS TO CULTU RE occult blood NEGATI VE negati ve normal Not Available [address], [address], 06/03/2024 11:10:50 06/02/19 25 06/03/2024 URINA LYSIS , COMPL ETE W/REF CARLOS TO CULTU RE protein NEGATI VE negati ve normal Not Available [facility] [address], [address], 06/03/2024 11:10:50 06/02/19 25 06/03/2024 URINA LYSIS , COMPL ETE W/REF CARLOS TO CULTU RE nitrite NEGATI VE negati ve normal Not Available [address], [address], 06/03/2024 11:10:50 06/02/19 25 06/03/2024 URINA LYSIS , COMPL ETE W/REF CARLOS TO CULTU RE leukocyte esterase NEGATI VE negati ve normal Not Available [address], [address], 06/03/2024 11:10:50 06/02/19 25 06/03/2024 URINA LYSIS , COMPL ETE W/REF CARLOS TO CULTU RE WBC 0-5 /hpf < or = 5 normal Not Available [address], [address], 06/03/2024 11:10:50 06/02/19 25 06/03/2024 URINA LYSIS , COMPL ETE W/REF CARLOS TO CULTU RE RBC NONE SEEN /hpf < or = 2 normal Not Available [address], [address], 06/03/2024 11:10:50 06/02/19 25 06/03/2024 URINA LYSIS , COMPL ETE W/REF CARLOS TO CULTU RE squamous epithelial cells 0-5 /hpf < or = 5 Not Available [address], [address], 06/03/2024 11:10:50 06/02/19 25 06/03/2024 URINA LYSIS , COMPL ETE W/REF CARLOS TO CULTU RE bacteria NONE SEEN /hpf none seen normal Not Available [address], [address], 06/03/2024 11:10:50 06/02/19 25 06/03/2024 URINA LYSIS , COMPL ETE W/REF CARLOS TO CULTU RE hyaline cast NONE SEEN /lpf none seen normal Not Available [address], [address], 06/03/2024 11:10:50 06/02/19 25 06/03/2024 URINA LYSIS , COMPL ETE W/REF CARLOS TO CULTU RE note This urine was franice zed for the prese nce of WBC, RBC, bacte ana, casts , and other forme d eleme nts. Only those eleme nts seen were repor sil. Not Available [facility] [address] [place], [address], 06/03/2024 11:10:50 06/02/19 25 06/03/2024 REFLE XIVE URINE CULTU RE reflexive urine culture NO CULTU RE INDIC ATED Not Available [facility] [address] [place], [address], 06/03/2024 11:10:52 06/02/19 25 06/03/2024 TSH W/REF CARLOS TO FT4 TSH w/reflex to FT4 1.05 mIU/L normal Refer ence Range > or = 20 Years 0.40- 4.50 Pregn paty Range s First trime ster 0.26- 2.66 Secon d trime ster 0.55- 2.73 Third trime ster 0.43- 2.91 Not Available [address] , [place], [address], 06/03/2024 11:10:52 06/02/19 25 06/03/2024 VITAM IN D,25- OH,TO NAM,I A vitamin D,25-oh,tota l,ia 15 NG/mL 30-100 low Vitam in D Statu s 25-OH Vitam in D: Defic iency : <20 ng/mL Insuf ficie ncy: 20 - 29 ng/mL Optim al: > or = 30 ng/mL For 25-OH Vitam in D testi ng on patie nts on D2-anthony pplem entat ion and patie nts for whom quant itati on of D2 and D3 fract ions is requi red, the [facility] Assur eD(TM ) 25-OH VIT D, (D2,D 3), LC/MS /MS is recom janee d: order code 37846 (gunjan ents >2yrs ). See Note 1 Note 1 For addit ional infor ginette booker e refer to http: //say Butt gnost ics.c om/fa q/FAQ 199 (This link is being provi ded for infor tiffany beltran/ educa shweta l purpo ses only. ) Not Available [facility] [address], [place], [address], 06/03/2024 11:10:53 06/02/19 25 06/03/2024 HEMOG LOBIN A1C hemoglobin A1C 4.9 %_of_ total _HGB <5.7 normal For the purpo se of scremargot shahg for the prese nce of diabe bekah: <5.7% Consi stent with the absen ce of diabe bekah 5.7-6 .4% Consi stent with incre ased risk for diabe bekah (pred iabet es) > or =6.5% Consi stent with diabe bekah This assay resul t is consi stent with a decre ased risk of diabe bekah. Curre ntly, no conse nsus exist s henny elliott use of hemog lobin A1c for diagn osis of diabe bekah in child anish. Accor ding to Ameri can Diabe bekah Assoc iatio n (ADA) guide lines , hemog lobin A1c <7.0% repre sents optim al contr ol in non-p regna nt diabe tic patie nts. Diffe rent metri cs may apply to speci fic patie nt popul ation s. Stand ards of Medic al Care in Diabe bekah(A DA). Not Available [facility] [address], [place], [address], 06/03/2024 11:10:54 03/19/20 22 03/19/2022 CT, abdom en + pelvi s, w/o contr ast No observ ation record ed. [email or web address], [place], [address], 08/09/2022 11:15:09 06/02/19 25 06/02/2024 XR, chest , 2 view No observ ation record ed. [email or web address] [address], [place], [address], 06/02/2024 14:44:05 Result Notes None recorded. Problems Name Problem SNOMED Code Status Onset Date Resolution Date Notes Provider Name and Address Organization Details Recorded Time Irritable bowel syndrome 00201278 Active 2020 Not Available [facility] 22:43:10 Cigarette smoker 67135981 Active 2022 Bennie Jane MD [address], [address] [employer], [place], [address] , [employer] 3 11:01:54 Vitamin D deficiency 37961646 Active 2022 Bennie Jane MD [address], [address] [employer], [place], [address] , [employer] 3 11:16:31 History of anxiety state 561373733 Active 2022 Bennie Jane MD [address], [employer], [place], [address] , [employer] 3 11:20:10 Hypertriglyce ridemia 200472038 Active 2022 Bennie Jane MD [address], [employer], [place], [address] , [employer] 3 14:42:48 Family history of cancer of colon 102962623 Active 2022 Bennie Jane MD [address], [employer], [place], [address] , [employer] 3 15:06:59 Notes:sromach problems , Aci d Reflux Disease Problem Notes None recorded. Procedures Surgical History Date Name Laterality Status Provider Name and Address Organization Details Recorded Time 06/02/19 25 Smoking Cessation completed Bennie Jane MD [address], [address], [place], [address], [employer] 06/02/2024 11:03:49 08/10/19 23 Smoking Cessation completed Bennie Jane MD [address], [address], [place], [address], [employer] 08/09/2022 11:18:47 05/14/19 section completed Saira Gunderson RN [facility] 08/09/2022 10:55:35 loop electrosurgical excision procedure of cervix completed Saira Gunderson RN [facility] 08/09/2022 10:58:05 Imaging Results Imaging Date Name Status LastModified by Organiz ation Details LastModified Time 03/19/2022 CT, abdomen + pelvis, w/o contrast completed [address], [address], 08/09/2022 11:15:09 06/02/2024 XR, chest, 2 view completed [address], [address], 06/02/2024 14:44:05 Procedure Notes None recorded. Medical Equipment None Reported. Allergies Allergen ID Allergen Name Allergen Category Reaction Reaction Severity Criticality Documentation Date Start Date Code Code System Note Provider Name and Address Organization Details Recorded Time 16914 codeine medicatio n hives Not available Not available 07/12/2022 2670 RxNorm Not Available [facility] 22:44:06 64786 nicotine medicatio n rash mild low 06/02/20242022 7407 RxNorm Nicot ine Patch cause d rash with blist ers under the patch . Radha Garza RN [facility], [facility] 10:47:29 Medications Name Sig Start Date Stop Date Status Note LastModified by Organization Details LastModified Time amoxicilli n 500 mg capsule Take 1 capsule every 8 hours by oral route for 7 days. 08/09 completed Not Available Not Available Not Available prednisone 10 mg tablet Take 1 tablet every day by oral route as directed for 7 days. 08/09 completed Not Available Not Available Not Available nicotine 14 mg/24 hr daily transderma l patch Apply 1 patch every day by transderm al route as directed for 30 days. 08/14 completed rash w/blis ters under patch Not Available Not Available Not Available fluconazol e 150 mg tablet TAKE 1 TABLET (150 MG TOTAL) BY MOUTH ONCE FOR 1 DOSE. 08/09 completed Not Available Not Available Not Available metronidaz ole 500 mg tablet TAKE 1 TABLET BY MOUTH TWICE A DAY FOR 7 DAYS 08/09 completed Not Available Not Available Not Available amoxicilli n 875 mg tablet Take 1 tablet every 12 hours by oral route as directed for 7 days. 08/09 completed Not Available Not Available Not Available sertraline 25 mg tablet Take 1 tablet every day by oral route. 08/09 completed Not Available Not Available Not Available ergocalcif edenilson (vitamin D2) 1,250 mcg (50,000 unit) capsule Take 1 capsule every week by oral route as directed. 2022 active Not Available Not Available Not Avai lable escitalopr am 5 mg tablet Take 1 tablet every day by oral route for 90 days. active Not Available Not Available No t Available multivitam in active Not Available Not Available Not Available Vitals Date Recorded Body height Body mass index (BMI) Body weight Body temperature Oxygen saturation Oxygen saturation in Arterial blood by Pulse oximetry Heart rate Respiratory rate Provider Name and Address Organization Details Last Updated DateTime 3 152.4 cm 21.7 kg/m2 89805.7 5 g 97.9 [degF] 98 % 98 % 78 /min 16 /min Saira Gunderson RN [facility] [employer] [facility] 3 10:57:09 Date Recorded Systolic blood pressure Diastolic blood pressure Provider Name and Address Organization Details Last Updated DateTime 08/09/2022 122 mm[Hg] 82 mm[Hg] Bennie Jane MD [address] [place] [address], [facility] [address], [place], [address], [facility] [employer] [facility] 08/09/2022 11:20:48 Date Recorded Body height Body mass index (BMI) Body weight Body temperature Heart rate Oxygen saturation Oxygen saturation in Arterial blood by Pulse oximetry Respiratory rate Systolic blood pressure Diastolic blood pressure Provider Name and Address Organization Details Last Updated DateTime 3 152.4 cm 22.7 kg/m2 08794.7 1 g 98.3 [degF] 81 /min 98 % 98 % 16 /min 124 mm[Hg] 84 mm[Hg] Saira Gunderson RN [facility] [employer] [facility] 3 14:44:48 Date Recorded Body height Body mass index (BMI) Body weight Body temperature Oxygen saturation Oxygen saturation in Arterial blood by Pulse oximetry Heart rate Systolic blood pressure Diastolic blood pressure Provider Name and Address Organization Details Last Updated DateTime 5 152.4 cm 23.9 kg/m2 52891.9 7 g 97 [degF] 99 % 99 % 78 /min 130 mm[Hg] 82 mm[Hg] Radha Garza RN [facility] [employer] [facility] 5 10:44:59 Social History Question Answer Notes LastModified by Organization Details LastModified Time Tobacco Smoking Status Current Every Day Smoker Saira Gunderson RN [facility], [facility] [employer] [facility] 08/09/2022 10:54:36 Do You Have An Advance Directive? No [email or web address] Information not available 08/09/2022 What Is Your Level Of Alcohol Consumption? Occasional [id number] Information not available 07/12/2022 What Is Your Level Of Caffeine Consumption? Moderate 2 Glasses Of Tea 6 Cans Of Soda When Working [email or web address] Information not available 06/02/2024 How Much Tobacco Do You Chew? None [id number] Information not available 07/12/2022 In The 14 Days Before Symptom Onset, Have You Had Close Contact With A Laboratory-confi rmed COVID-19 While That Case Was Ill? No MIGRATION.030 [id number] Information not available 07/12/2022 In The 14 Days Before Symptom Onset, Have You Had Close Contact With A Person Who Is Under Investigation For COVID-19 While That Person Was Ill? No MIGRATION.030 [id number] Information not available 07/12/2022 Are You Currently Employed? Yes [email or web address] Information not available 08/09/2022 What Type Of Diet Are You Following? REGULAR [id number].030 [id number] Information not available 07/12/2022 Do You Or Have You Ever Used E-cigarettes Or Vape? Never Used Electronic Cigarettes [email or web address].030 [id number] Information not available 07/12/2022 What Is The Highest Grade Or Level Of School You Have Completed Or The Highest Degree You Have Received? 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 No Information not available 08/09/2022 Where Do You Live? SingleLevelHouse [email or web address] Information not available 08/09/2022 What Is Your Current Pack Years? 30ormorepackyears [email or web address] Information not available 06/02/2024 Do You Have Any Pets? Yes Cat Dog [email or web address] Information not available 08/09/2022 What Is Your Relationship Status? [email or web address] Information not available 08/09/2022 Do You Have Smoke And Carbon Monoxide Detectors In Your Home? Yes [email or web address] Information not available 08/09/2022 At What Age Did You Start Smoking Tobacco? 13 [email or web address] Information not available 08/09/2022 Are You Passively Exposed To Smoke? Yes [email or web address] Information not available 08/09/2022 Do You Or Have You Ever Used Smokeless Tobacco? Never Used Smokeless Tobacco [id number] [id number] Information not available 07/12/2022 Are There Any Smokers In Your House? No [email or web address] Information not available 08/09/2022 How Much Tobacco Do You Smoke? 0.5 PPD [email or web address] Information not available 08/09/2022 Do You Use Any Illicit Or Recreational Drugs? No Information not available 06/02/2024 How Many Years Have You Smoked Tobacco? 30 [email or web address] Information not available 06/02/2024 Are You Currently In School? No [email or web address] Information not available 08/09/2022 Do You Or Have You Ever Used Any Other Forms Of Tobacco Or Nicotine? No [email or web address] Information not available 06/02/2024 Sex: Female Functional Status None recorded. Mental Status None recorded. Family History Relationship Description Onset Age of this Age Resolved Age Notes LastModified by Organization Details LastModified Time Mother Chronic obstructive pulmonary disease [id number] [id number] Not available 07/12/2022 22:42:37 Mother Osteoporosis MIGRATION.0 30 [id number] Not available 07/12/2022 22:42:37 Maternal Grandfather Malignant tumor of colon MIGRATION.888 [id number] Not available 07/12/2022 22:42:37 Paternal Uncle Malignant tumor of stomach MIGRATION.954 [id number] Not available 07/12/2022 22:42:37 Father Disorder of stomach MIGRATION.614 [id number] Not available 07/12/2022 22:42:37 Son Cerebral palsy MIGRATION.755 [id number] Not available 07/12/2022 22:42:37 Paternal Uncle Malignant neoplasm of liver [email or web address] Not available 2022 14:43:10 Paternal Uncle Leukemia Not available 023 14:43:47 Medical History Condition Response GI PROBLEMS Y Gynecological HistoryNo gynecological history recorded. Obstetrics History GPAL:G 0 P 0 0 0 0 Immunizations Vaccine Type Date Status Note Provider Nam e and Address Organization Details Recorded Time Tdap 08/31/2016 completed Not Available [facility] 07/12/2022 22:44:04 Past Encounters Encounter ID Performer Location Encounter Start Date Encounter Closed Date Diagnosis/Indication Diagnosis SNOMED-CT Code Diagnosis ICD10 Code Diagnosis Note [id number] [address] [address] 08/25/2020 00:00:00 08/25/2020 16:17:[id number] [address] 09/22/2020 00:00:00 09/22/2020 13:46:[id number] [address] 03/30/2021 00:00:00 03/30/2021 11:18:02 [id number] Bennie Jane MD [address] [address] 08/09/2022 10:45:09 08/09/2022 11:37:58 Adult health examination 717576923 Z00.00 Cigarette smoker 4087150 7 F17.210 Vitamin D deficiency 347 53686 E55.9 Screening mammography 24 144501 Z12.31 Diabetes m ellitus screening 405983511 Z13.1 History of anxiety state 495030788 F41.9 [id number] Evelyn Del Valle NP [address] [address] 08/16/2022 11:20:51 08/16/2022 11:56:12 [id number] Bennie Jane MD [address] [address] 08/29/2022 14:36:23 08/29/2022 15:10:26 Cigarette smoker 41090462 F17.210 Vitamin D deficiency 347 27043 E55.9 History of anxiety state 720040927 F41.9 Hypertriglyceridemia 302 840221 E78.2 Family his tory of cancer of colon 805041570 Z80.0 [id number] Bennie Jane MD [facility] [address] 06/02/2024 10:35:15 06/02/2024 11:03:15 Vitamin D deficiency 11575885 E55.9 Hypertriglyceridemia 302 045830 E78.2 Cigarette smoker 1458246 7 F17.210 History of anxiety state 739272476 F41.9 Family his tory of cancer of colon 832642937 Z80.0 Adult heal th examination 417221717 Z00.00 Diabetes m ellitus screening 559229305 Z13.1 Screening mammography 24 416655 Z12.31 Health Concerns Section Related Observation LastModified by Organization Detai ls LastModified Time None Recorded Concern Status LastModified by Organization Details LastModified Time None Recorded Advance Directives Directive N: Payers Encounter Date Sequence Insurance Name Policy Number Policy Mckeon Covered Member ID Mckeon Member ID Guarantor Name 08/09/2022 2 [employer] Brooke Lucas [id number] Crystal Lucas 08/09/2022 1 [employer] [id number] Ramu Lucas [id number] Crystal Lucas 08/16/2022 1 [employer] [id number] Ramu Lucas [id number] Crystal Lucas 08/29/2022 1 [employer] [id number] Ramu Lucas [id number] Crystal Lucas 06/02/2024 1 [facility] Crystal Lucas [id number] Crystal Lucas Notes Date Note Type Note Provider Name and Address Organization Details Recorded Time 08/09/2022 text/html Pt is here for her Annual exam. Doing overall well. Denies any concerns. Pt has not seen anyone for last few yrs. Doing well with her mood and anxiety. No more concerns with it. PMH, FH and SH reviewed. Bennie Jane MD [address] [employer], [place], [address], [employer] 08/09/2022 11:37:34 08/29/2022 text/html Pt is here for f/u on her annual labs. Doing overall well. Denies any concerns. Doing well with her mood and anxiety. No more concerns with it. Bennie Jane MD [address], [place], [address], [employer] 08/29/2022 15:07:26 06/02/2024 text/html Pt is here for her annual exam. Doing overall well. Denies any new concern. Last visit in 09/03. Pt has not seen GI doctor yet. Needs another referral for it. Doing well with her mood and anxiety. No more concerns with it. Bennie Jane MD [address], [address], [place], [address], [employer] 06/02/2024 11:06:54 OBGyn Episode No OBEpisode recorded.
--- OUTSIDE RECORDS SUMMARY | 2024-06-05 12:59 | XMS_ITS | Continuity of Care Document ---
Author Organization [place] - [facility] [employer] [facility], [facility] Address [address] [place] [address] Care Team Providers Care Fine Arts Instructor Name Role Phone BENNIE JANE Primary Care Provider Assessment Encounter Date Assessment Date Assessment LastModified by Organization Details LastModified Time 06/02/2024 06/02/2024 43 yo F with - [...] per pt. Cont f/u with Gyne at [facility] as per schedule. Mammo - Never. Ordered again. Flu - Pt declined. Tdap - 08/31/16. F/u in 2-3 weeks. Annual labs in 06/08. [email or web address] Not available 06/02/2024 11:05:45 Plan of Treatment Reminders Order Date Submit Date Provider Last Modified By Organization Details Last Modified Time Details Appointments Follow Up 15 2024 10:45A Deena Jane MD Not available Not available Not available Lab vitamin D, 25-hydrox y, total, serum 2024 025 [facility], [address], [place], [address], 06/03/2024 11:10:53 HbA1c (hemoglob in A1c), blood 2024 025 [facility], [address], [place], [address], 06/03/2024 11:10:54 CBC w/ auto diff 2024 025 [facility], [address], [place], [address], 06/03/2024 11:10:49 CMP, serum or plasma 2024 025 [facility], [address], [place], [address], 06/03/2024 11:10:48 lipid panel, serum 2024 025 [facility], [address], [place], [address], 06/03/2024 11:10:47 TSH, serum, reflex free T4 2024 025 [facility], [address], [place], [address], 06/02/2024 10:57:16 urinalysi s complete, reflex culture 2024 025 [facility], [address], [place], [address], 06/03/2024 11:10:50 Referral gastroent erologist referral - Please call patient to schedule an appointme nt. Thank you. 2024 025 ATHENAMAGNUS Dexter MD, [address] [facility], [address], [place], [address], 06/02/2024 11:45:25 Procedures None recorded. Surgeries None recorded. Imaging MAMMO, screening , bilateral - Please call pt to schedule 2024 [facility]25 [facility], [address], [place], [address], 06/02/2024 12:05:26 XR, chest, 2 view [address] [facility], [address], [place], [address], 06/02/2024 14:44:20 Medication Orders None recorded. Patient TargetsNo targets recorded. Patient InstructionsNo instructions recorded. 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 Thank you. Referring Physician: Bennie Jane, Family Medicine, Encounter Date: 06/02/2024 Results Created Date Observation Date Name Description Value Unit Range Abnormal Flag Note LastModifiedBy Organization Detail LastModifiedTime 06/02/19 25 06/02/2024 XR, chest , 2 view No observ ation record ed. [email or web address] [facility] [address], [place], [address], 06/02/2024 14:44:05 Result Notes None recorded. Problems Name Problem SNOMED Code Status Onset Date Resolution Date Notes Provider Name and Address Organization Details Recorded Time Irritable bowel syndrome 41251019 Active 2020 Not Available [employer] 3 22:43:10 Cigarette smoker 80033544 Active 2022 Bennie Jane MD [address], [facility] [address], [place], [address] , [employer] 3 11:01:54 Vitamin D deficiency 04258859 Active 2022 Bennie Jane MD [address], [place], [address] , [employer] 3 11:16:31 History of anxiety state 777521531 Active 2022 Bennie Jane MD [address], [address], [place], [address] , [employer] 3 11:20:10 Hypertriglyce ridemia 626417164 Active 2022 Bennie Jane MD [address], [address], [place], [address] , [employer] 3 14:42:48 Family history of cancer of colon 323619828 Active 2022 Bennie Jane MD [address], [address], [place], [address] , [employer] 3 15:06:59 Notes:sromach problems , Aci d Reflux Disease Problem Notes None recorded. Procedures Surgical History Date Name Laterality Status Provider Name and Address Organization Details Recorded Time 06/02/19 25 Smoking Cessation completed Bennie Jane MD [address], [place], [address], [employer] 06/02/2024 11:03:49 08/10/19 23 Smoking Cessation completed Bennie Jane MD [address], [place], [address], [employer] [facility] 08/09/2022 11:18:47 05/14/19 05 section completed Saira Gunderson RN [facility] [employer] [facility] 08/09/2022 10:55:35 loop electrosurgical excision procedure of cervix completed Saira Gunderson RN [facility] [employer] 08/09/2022 10:58:05 Imaging Results None recorded. Procedure Notes None recorded. Medical Equipment None Reported. Allergies Allergen ID Allergen Name Allergen Category Reaction Reaction Severity Criticality Documentation Date Start Date Code Code System Note Provider Name and Address Organization Details Recorded Time 16277 codeine medicatio n hives Not available Not available 07/12/2022 2670 RxNorm Not Available [employer] 22:44:06 08897 nicotine medicatio n rash mild low 06/02/20242022 7407 RxNorm Nicot ine Patch cause d rash with blist ers under the patch . Radha Garza RN null, [place] [facility] [employer] [facility] 5 10:47:29 Medications Name Sig Start Date Stop [...] Updated DateTime 5 152.4 cm 23.9 kg/m2 76906.9 7 g 97 [degF] 99 % 99 % 78 /min 130 mm[Hg] 82 mm[Hg] Radha Garza RN [facility] [employer] 10:44:59 Social History Question Answer Notes LastModified by Organization Details LastModified Time Tobacco Smoking Status Current Every Day Smoker Saira Gunderson RN [facility], [facility] [employer] 08/09/2022 10:54:36 Do You Have An Advance Directive? No [email or web address] Information not available 08/09/2022 What Is Your Level Of Alcohol Consumption? Occasional MIGRATION.0301 [id number] Information not available 07/12/2022 What Is Your Level Of Caffeine Consumption? Moderate 2 Glasses Of Tea 6 Cans Of Soda When Working [email or web address] Information not available 06/02/2024 How Much Tobacco Do You Chew? None MIGRATION.030 [id number] Information not available 07/12/2022 In The 14 Days Before Symptom Onset, Have You Had Close Contact With A Laboratory-confi rmed COVID-19 While That Case Was Ill? No MIGRATION.030 [id number] Information not available 07/12/2022 In The 14 Days Before Symptom Onset, Have You Had Close Contact With A Person Who Is Under Investigation For COVID-19 While That Person Was Ill? No MIGRATION.0301 [id number] Information not available 07/12/2022 Are You Currently Employed? Yes [email or web address] Information not available 08/09/2022 What Type Of Diet Are You Following? REGULAR MIGRATION.0301 [id number] Information not available 07/12/2022 Do You Or Have You Ever Used E-cigarettes Or Vape? Never Used Electronic Cigarettes MIGRATION.0301 978772 Information not available 07/12/2022 What Is The Highest Grade Or Level Of School You Have Completed Or The Highest Degree You Have Received? 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 No [email or web address] Information not available 08/09/2022 Where Do You Live? SingleLevelHouse [email or web address] Information not available 08/09/2022 What Is Your Current Pack Years? [email or web address] Information not available 06/02/2024 Do You Have Any Pets? Yes Cat Dog [email or web address] Information not available 08/09/2022 What Is Your Relationship Status? Information not available 08/09/2022 Do You Have Smoke And Carbon Monoxide Detectors In Your Home? Yes Information not available 08/09/2022 At What Age Did You Start Smoking Tobacco? 13 Information not available 08/09/2022 Are You Passively Exposed To Smoke? Yes Information not available 08/09/2022 Do You Or Have You Ever Used Smokeless Tobacco? Never Used Smokeless Tobacco MIGRATION.0301 [id number] Information not available 07/12/2022 Are There Any Smokers In Your House? No [email or web address] Information not available 08/09/2022 How Much Tobacco Do You Smoke? 0.5 PPD [email or web address] Information not available 08/09/2022 Do You Use Any Illicit Or Recreational Drugs? No [email or web address] Information not available 06/02/2024 How Many Years Have You Smoked Tobacco? 30 [email or web address] Information not available 06/02/2024 Are You Currently In School? No [email or web address] Information not available 08/09/2022 Do You Or Have You Ever Used Any Other Forms Of Tobacco Or Nicotine? No [email or web address] Information not available 06/02/2024 Sex: Female Functional Status None recorded. Mental Status None recorded. Family History Relationship Description Onset Age of this Age Resolved Age Notes LastModified by Organization Details LastModified Time Mother Chronic obstructive pulmonary disease MIGRATION.567 [id number] Not available 07/12/2022 22:42:37 Mother Osteoporosis MIGRATION.0 30 [id number] Not available 07/12/2022 22:42:37 Maternal Grandfather Malignant tumor of colon MIGRATION.830 [id number] Not available 07/12/2022 22:42:37 Paternal Uncle Malignant tumor of stomach MIGRATION.126 [id number] Not available 07/12/2022 22:42:37 Father Disorder of stomach MIGRATION.239 4687961 Not available 07/12/2022 22:42:37 Son Cerebral palsy MIGRATION.806 1463695 Not available 07/12/2022 22:42:37 Paternal Uncle Malignant neoplasm of liver [email or web address] Not available 2022 14:43:10 Paternal Uncle Leukemia [email or web address] Not available 023 14:43:47 Medical History Condition [...] SNOMED-CT Code Diagnosis ICD10 Code Diagnosis Note [id number] Bennie Jane MD [facility] [address] [address] 06/02/2024 10:35:15 06/02/2024 11:03:15 Vitamin D deficiency 40230737 E55.9 Hypertriglyceridemia 302 968111 E78.2 Cigarette smoker 9654441 7 F17.210 History of anxiety state 687044614 F41.9 Family his tory of cancer of colon 603697580 Z80.0 Adult heal th examination 011842016 Z00.00 Diabetes m ellitus screening 201916179 Z13.1 Screening mammography 24 055576 Z12.31 Health Concerns Section Related Observation LastModified by Organization Detai ls LastModified Time None Recorded Concern Status LastModified by Organization Details LastModified Time None Recorded Payers Encounter Date Sequence Insurance Name Policy Number Policy Mckeon Covered Member ID Mckeon Member ID Guarantor Name 06/02/2024 1 [facility] Brooke Lucas [id number] Brooke Lucas Notes Date Note Type Note Provider Name and Address Organization Details Recorded Time 06/02/2024 text/html Pt is here for her annual exam. Doing overall well. Denies any new concern. Last visit in 09/03. Pt has not seen GI doctor yet. Needs another referral for it. Doing well with her mood and anxiety. No more concerns with it. Bennie Jane MD [address] [facility] [address], [place], [address], [facility] [employer] 06/02/2024 11:06:54 OBGyn Episode No OBEpisode recorded.
--- OUTSIDE RECORDS SUMMARY | 2024-06-05 12:59 | XMS_ITS | Clinical Summary ---
Author Organization [facility] Address [address] [place] [address]. [place] [address] Care Team Providers Care Quartz Mounter Name Role Phone Unavailable Primary Care Provider Unavailabl e Social History Tobacco Use Types Packs/Day Years Used Date Smoking Tobacco: Never Assessed Comments Unknown Sex and Gender Information Value Date Recorded Sex Assigned at Not on file Legal Sex Female 5:30 PM CDT Gender Identity Not on file Sexual Orientation Not on file Last Filed Vital Signs Vital Sign Reading Time Taken Comments Blood Pressure 128/78 03/01/2016 8:46 AM CDT Pulse 71 03/01/2016 8:46 AM CDT Temperature - - Respiratory Rate - - Oxygen Saturation - - Inhaled Oxygen Concentration - - Weight 51.7 kg (114 lb) 03/01/2016 8:46 AM CDT Height 152.4 cm (5') 03/01/2016 8:46 AM CDT Body Mass Index 22.26 03/01/2016 8:46 AM CDT Plan of Treatment Health Maintenance Due Date Last Done Comments Cervical Cancer Screening Pa p Smear (Age 30 to 64) Every 3 Years 1979 Annual Physical 10/06/1982 Hepatitis C 10/06/1997 DTaP, Tdap and Td Vaccines ( 1 - Tdap) 10/06/1998 Hepatitis B Vaccines (1 of 3 - 19+ 3-dose series) 10/06/1998 Cervical Cancer Screening Pa p with HPV Testing (Age 30 to 64) Every 5 Years 10/06/2009 Cervical Cancer Screening with HPV 10/06/2009 Mammogram Screening 2019 COVID-19 Vaccine (2023-2 5 season) 2024 Influenza Adult (#1) 2024 HPV Vaccines Aged Out No longer eligi ble based on patient's age to complete this topic Meningococcal B Vaccine Aged Out No l onger eligible based on patient's age to complete this topic Meningococcal Vaccine Aged Out No tova hesham eligible based on patient's age to complete this topic Pneumococcal Vaccine: Pediat rics (0 to 5 Years) and At-Risk Patients (6 to 64 Years) Aged Out No longer eligible b ased on patient's age to complete this topic RSV Immunizations Under 20 Months Aged Out No longer eligible based on patient's age to complete this topic
== END 2024-06-02 11:03 | disposition home or self-care (01) ==
LOC: ANHIMG 11:09
PROVIDERS: PCP Family Medicine; Visit Provider Family Medicine
DX: F17.210 Nicotine dependence, cigarettes, uncomplicated (principal)
CPT/HCPCS: 71046